=== PATIENT | female | born 1950 | race Caucasian/White ===

== ENCOUNTER 2024-03-04 17:46 | Emergency (ER) | payer MEDICARE, OTHER, SELFPAY ==
[2024-03-04 17:51] VITALS: BP 201/95
[2024-03-04] MEDS: LET TOPICAL ANESTHETIC GEL 3 ML TOPICAL (18:09)
--- NOTE | 2024-03-04 18:25 | ED.SKININJ ---
HPI-Injury
General
Chief Complaint: Skin Surface Trauma
Source: patient
Exam Limitations: none
Time Seen by Provider: 03/04/24 18:25
Nursing documentation reviewed up to this point in time: agreed with
History of Present Illness-Injury
Initial Injury comments:
73-year-old female avulsed the skin of the lateral aspect of right thumb pad on a mandolin at home within the past few hours. She is unable to get it to stop bleeding. She has had a tetanus immunization within the past 5 years.
Past History
Past History
ED Past Medical History: HTN
ED Past Surgical History: Orthopedic
Social History
Tobacco: Non-smoker
Alcohol: None
Personal:
Living: with family
Review of Systems
Review of Systems
Allergies reviewed?: Yes
All Other Systems: ROS reviewed and negative except as documented in HPI and ROS
Skin: Reports other (Skin avulsion right thumb)
Phy Exam
Physical Exam
Physical Exam:
PHYSICAL EXAMINATION:
General: no apparent distress, not acutely ill
Neuro: alert and oriented.
Psychiatric: well kept. interactive and cooperative
Musculoskeletal: Moves with ease
Skin: Warm, pink. 1 cm x 5 mm area of skin avulsed on the lateral aspect of the right thumb pad. Constantly oozing venous blood, good hemostasis with pressure
Course
Orders/Labs/Results
Orders:
Orders
03/04/24 18:08
Lidocaine/Epinephrine/Tetracai [Let Topical Anesthetic Gel] 3 ml TOPICAL NOW STA
03/04/24 18:09
Lidocaine/Epinephrine/Tetracai [Let Topical Anesthetic Gel] 3 ml .ROUTE .STK-MED ONE
Vital Signs
Initial and Last Documented VS:
Initial Vital Signs
Temp Pulse Resp BP Pulse Ox
98.2 F 82 16 201/95 99
03/04/24 17:51 03/04/24 17:51 03/04/24 17:51 03/04/24 17:51 03/04/24 17:51
Last Documented Vital Signs
Temp Pulse Resp BP Pulse Ox
98.2 F 69 16 157/80 99
03/04/24 17:51 03/04/24 18:29 03/04/24 18:29 03/04/24 18:29 03/04/24 18:29
MDM/Problems Addressed
MDM/Problems Addressed:
73-year-old female avulsed the skin of the lateral aspect of right thumb pad on a mandolin at home within the past few hours. She is unable to get it to stop bleeding. She has had a tetanus immunization within the past 5 years.
After left topical anesthetic, wound cleansed
Bleeding controlled with Gelfoam and tube gauze pressure dressing.
*Critical Care Note
Total Time (30-74mins, 75-104mins- exclusive of procedures): Not Applicable
ED Attending Note
-
Portions of this chart may have been created with voice recognition software.� Occasional wrong word or��sound alike� substitutions may have occurred due to the inherent limitations of voice recognition software.
Discharge Plan
Departure
Patient Disposition: Home (Routine Discharge)
Date of Disposition: 03/04/24
Time of Disposition: 18:28
Patient with high blood pressure during this ER visit?: No
Condition: Good
Discharge Problem:
Avulsion of skin of right thumb
Instructions: Wound Care (DC)
Referrals:
Mark Mcgregor MD [Family Provider] - As needed
Activity Restrictions/Additional Instructions:
As we discussed, remove the dressing on Thursday evening or Thursday a.m.
Then gently wash the area daily as usual with soap and water, apply antibiotic ointment, band aids and use the aluminum helmet splint as I showed you as needed for protection.
Keep the wound dressed daily for protection until well healed (about 3-4 weeks)
Interventions
Interventions:
*General Assessment Last Done: 03/04/24 18:48
*Nursing Disposition Last Done: 03/04/24 18:48
ED-Skin Assessment Last Done: 03/04/24 18:47
Discharge Date and Time
Discharge Date/Time: 03/04/24 18:49
Print Language: TRISTANIAN
[2024-03-04 18:29] VITALS: BP 157/80
== END 2024-03-04 18:49 | disposition home or self-care (01) ==
LOC: EMR 17:46
PROVIDERS: EMERGENCY PHYSICIAN Emergency Medicine; FAMILY PHYSICIAN Internal Medicine Geriatric Medicine
DX: S61.001A Unspecified open wound of right thumb without damage to nail, initial encounter (principal); W27.4XXA Contact with kitchen utensil, initial encounter; I10 Essential (primary) hypertension; M06.9 Rheumatoid arthritis, unspecified
CPT/HCPCS: 99282

== ENCOUNTER → 2024-12-28 08:06 | Outpatient (REF) | payer MEDICARE, OTHER, SELFPAY | LOC: HWWDC 08:06 | PROVIDERS: ATTENDING PHYSICIAN Obstetrics & Gynecology Gynecology; FAMILY PHYSICIAN Internal Medicine Geriatric Medicine | DX: Z12.31 Encounter for screening mammogram for malignant neoplasm of breast (principal) | CPT/HCPCS: 77063; 77067 ==

== ENCOUNTER → 2025-05-02 09:29 | Outpatient (REF) | payer MEDICARE, OTHER, SELFPAY | LOC: HWRAD 09:29 | PROVIDERS: ATTENDING PHYSICIAN Internal Medicine Geriatric Medicine | DX: M85.80 Other specified disorders of bone density and structure, unspecified site (principal); M81.0 Age-related osteoporosis without current pathological fracture | CPT/HCPCS: 77080 ==